=== PATIENT | female | born 1985 | race Caucasian/White ===

== ENCOUNTER 2020-07-30 18:52 | Emergency (ER) | payer MEDICAID, OTHER ==
[~2020-07-30] VITALS: Ht 154.9 cm; Wt 56.8 kg
[2020-07-30] MEDS ORDERED: PENICILLIN G BENZATHINE 2,400,000 UNIT/4 ML SYRINGE IM STA (19:33)
[2020-07-30] MEDS ORDERED: CefTRIAXone 1000mg IM Kit (w/lidocaine diluent) IM STA (19:33)
[2020-07-30] MEDS ORDERED: HYDROcodone/acetaminophen 5mg/325mg tablet PO ONE (19:35)
[2020-07-30] MEDS ORDERED: azithromycin 250mg tablet PO ONE (19:35)
[2020-07-30] MEDS ORDERED: metroNIDAZOLE 500mg tablet PO ONE (19:35)
[2020-07-30 19:44] VITALS: BP 159/89
[2020-07-30] MEDS ORDERED: DOXY100C77 PO (19:54)
== END 2020-07-30 20:28 | disposition home or self-care (01) ==
LOC: ER 18:53
DX: K04.7 Periapical abscess without sinus (principal); A64 Unspecified sexually transmitted disease; F12.90 Cannabis use, unspecified, uncomplicated; F17.200 Nicotine dependence, unspecified, uncomplicated; Z59.0 Homelessness; Z79.2 Long term (current) use of antibiotics
CPT/HCPCS: 36415; 86592; 87491; 87591; 96372; 99284; J0561; J0696; J3490

== ENCOUNTER 2020-08-31 22:48 | Emergency (ER) | payer MEDICAID ==
[~2020-08-31] VITALS: Ht 154.9 cm; Wt 61.5 kg
[2020-08-31 23:02] VITALS: BP 134/79
[2020-09-01] MEDS ORDERED: PENICILLIN G BENZATHINE 2,400,000 UNIT/4 ML SYRINGE IM ONE (00:35)
[2020-09-01] MEDS ORDERED: azithromycin 250mg tablet PO ONE (00:35)
[2020-09-01] MEDS ORDERED: CefTRIAXone 1000mg IM Kit (w/lidocaine diluent) IM ONE (00:35)
== END 2020-09-01 01:13 | disposition home or self-care (01) ==
LOC: ER 22:49
DX: Z20.2 Contact with and (suspected) exposure to infections with a predominantly sexual mode of transmission (principal); F12.90 Cannabis use, unspecified, uncomplicated; Z56.0 Unemployment, unspecified
CPT/HCPCS: 36415; 87491; 87591; 96372; 99283; J0696

== ENCOUNTER 2021-01-08 22:18 | Emergency (ER) | payer MEDICAID ==
[~2021-01-08] VITALS: Ht 154.9 cm; Wt 65.0 kg
[2021-01-08 23:03] VITALS: BP 108/65
== END 2021-01-09 01:50 | disposition left against medical advice (07) ==
LOC: ER 22:19
DX: J02.9 Acute pharyngitis, unspecified (principal); Z53.21 Procedure and treatment not carried out due to patient leaving prior to being seen by health care provider

== ENCOUNTER 2021-03-01 15:29 | Emergency (ER) | payer MEDICAID ==
[~2021-03-01] VITALS: Ht 154.9 cm; Wt 61.4 kg
[2021-03-01 15:55] VITALS: BP 121/66
--- NOTE | 2021-03-01 16:27 | NUR ---
PT IS REFUSING BLOOD DRAW FOR LABS. PT INSISTING THAT SHE WANTS NOTHING DONE WITHOUT SEEING A PROVIDER. PT WAS NOTIFIED THAT SHE HAD BEEN SEEN BY A PROVIDER AND XRAYS AND LAB WORK WAS ORDERED PART OF THE EVALUATION PROCESS. PT BECAME UPSENT AND AGGITATED AND CONTINUED TO REFUSE LAB DRAW. PROVIDER, BATOOL PAIGE NOTIFIED
[2021-03-01] MEDS ORDERED: iohexol 350MG/ML 100ml bottle IV ONE (17:25)
== END 2021-03-01 17:34 | disposition left against medical advice (07) ==
LOC: ER 15:30
DX: S05.11XA Contusion of eyeball and orbital tissues, right eye, initial encounter (principal); F12.10 Cannabis abuse, uncomplicated; R13.10 Dysphagia, unspecified; Z59.0 Homelessness; Y04.0XXA Assault by unarmed brawl or fight, initial encounter; Y93.89 Activity, other specified; Y92.89 Other specified places as the place of occurrence of the external cause; Y99.8 Other external cause status
CPT/HCPCS: 71045; 99283; Q9967; 99285

== ENCOUNTER 2022-01-19 00:24 | Emergency (ER) | payer MEDICAID ==
[~2022-01-19] VITALS: Ht 154.9 cm; Wt 62.7 kg
[2022-01-19 00:30] VITALS: BP 132/82
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
== END 2022-01-19 04:33 | disposition left against medical advice (07) ==
LOC: ER 00:25
DX: S60.451A Superficial foreign body of left index finger, initial encounter (principal); Z53.21 Procedure and treatment not carried out due to patient leaving prior to being seen by health care provider; X58.XXXA Exposure to other specified factors, initial encounter; Y93.89 Activity, other specified; Y92.89 Other specified places as the place of occurrence of the external cause; Y99.8 Other external cause status
CPT/HCPCS: 73130

== ENCOUNTER 2023-10-13 21:03 | Emergency (ER) | payer MEDICAID ==
[~2023-10-13] VITALS: Ht 154.9 cm; Wt 63.0 kg
[2023-10-13 21:09] VITALS: BP 154/97; PULSE 87; RESP 16; O2SAT 100
[2023-10-13] MEDS ORDERED: SULF1TAB45 PO (22:50)
[2023-10-13] MEDS ORDERED: CLIN-97 PO (22:50)
[2023-10-13 23:04] VITALS: TEMP 98.4
== END 2023-10-13 23:05 | disposition home or self-care (01) ==
LOC: ER 21:03
DX: S01.81XA Laceration without foreign body of other part of head, initial encounter (principal); F12.90 Cannabis use, unspecified, uncomplicated; Y08.89XA Assault by other specified means, initial encounter; Y93.89 Activity, other specified; Y92.89 Other specified places as the place of occurrence of the external cause; Y99.8 Other external cause status
CPT/HCPCS: 99283

== ENCOUNTER 2024-07-08 20:24 | Emergency (ER) | payer MEDICAID ==
[~2024-07-08] VITALS: Ht 152.4 cm; Wt 49.7 kg
[~2024-07-08 20:24] MED LIST: CLIN-97 PO
[2024-07-08 21:34] VITALS: TEMP 98.6
[2024-07-08 23:10] LABS: BILIRUBIN,URINE NEGATIVE (Neg); CLARITY,URINE CLEAR (Clear); COLOR,URINE YELLOW (Yellow); GLUCOSE, URINE NEGATIVE (Neg); KETONES,URINE NEGATIVE (Neg); LEUKOCYTE ESTERASE ,URINE MODERATE (Neg); NITRITES, URINE POSITIVE (Neg); OCCULT BLOOD,URINE NEGATIVE (Neg); PH,URINE 7.5 (4.8-8.0); PROTEIN,URINE NEGATIVE (Neg); UROBILINOGEN,URINE 0.2 E.U/dL (0.2-1.0)
[2024-07-08 23:12] LABS: ALBUMIN 3.3 G/DL (3.4-5.0); ANION GAP 5 (8-16); BLOOD UREA NITROGEN 12 MG/DL (7-18); BUN/CREATININE RATIO 14.1 (10.0-20.0); CALCIUM 8.5 MG/DL (8.5-10.1); CHLORIDE 103 MMOL/L (99-107); CREATININE 0.85 MG/DL (0.40-0.90); ETHANOL < 10 MG/DL (<10); GLUCOSE 97 MG/DL (70-104); HCG SERUM QL NEGATIVE; POTASSIUM 3.6 MMOL/L (3.5-5.1); SODIUM 139 MMOL/L (135-145); TOTAL CARBON DIOXIDE 30.7 MMOL/L (24-32); eCRCL 63 ML/MIN; eGFR 74 ML/MIN
[2024-07-08 23:25] LABS: UA COLLECTION TYPE CLN CATCH MIDSTREAM
[2024-07-08] MEDS: acetaminophen 1,000mg/100ml IV 100 ML IV ONE (23:25)
[2024-07-08 23:26] LABS: BACTERIA,URINE 4+ /HPF (Neg); RBC,URINE NONE SEEN /HPF (0-2); SQUAMOUS EPITHELIAL CELL,UR FEW /LPF (FEW)
[2024-07-08 23:31] LABS: BASOPHILS % (AUTO) 0.2 % (0-1); EOSINOPHILS # (AUTO) 0.1 X10'3 (0-0.9); EOSINOPHILS % (AUTO) 0.4 % (0-6); HEMATOCRIT 36.8 % (35.0-45.0); HEMOGLOBIN 12.7 g/dl (12.0-16.0); LYMPHOCYTES # (AUTO) 1.8 X10'3 (1.1-4.8); LYMPHOCYTES % (AUTO) 12.7 % (21-51); MEAN CORPUSCULAR HEMOGLOBIN 30.2 PG (27.0-31.0); MEAN CORPUSCULAR HGB CONC 34.5 g/dL (33.0-36.5); MEAN CORPUSCULAR VOLUME 87.3 FL (78-98); MEAN PLATELET VOLUME 6.6 FL (7.4-10.4); MONOCYTES # (AUTO) 0.4 X10'3 (0-0.9); MONOCYTES % (AUTO) 2.9 % (2-12); NEUTROPHILS # (AUTO) 11.6 X10'3 (1.8-7.7); NEUTROPHILS % (AUTO) 83.8 % (42-75); PLATELET COUNT 307 X10'3 (140-440); RED BLOOD COUNT 4.21 X10'6 (4.20-5.60); WHITE BLOOD COUNT 13.8 X10'3 (4.5-11.0)
[2024-07-08 23:51] LABS: URINE AMPHETAMINE SCREEN POSITIVE (Neg); URINE BARBITUATE SCREEN NEGATIVE (Neg); URINE BENZODIAZEPINES SCREEN NEGATIVE (Neg); URINE CANNABINOID SCREEN POSITIVE (Neg); URINE COCAINE SCREEN NEGATIVE (Neg); URINE METHADONE SCREEN NEGATIVE (Neg); URINE OPIATE SCREEN NEGATIVE (Neg); URINE PHENCYCLIDINE SCREEN NEGATIVE (Neg)
[2024-07-09] MEDS: CefTRIAXone/D5W-Rocephin 1gm 50 ML IV ONE (01:03)
[2024-07-09] MEDS ORDERED: CEPH-585 PO (01:12)
[2024-07-09] MEDS: ketorolac trometh 15mg/ml vial 15 MG/ML ML IV ONE (01:49)
[2024-07-09 02:03] VITALS: BP 121/64; PULSE 64; RESP 16; O2SAT 97
== END 2024-07-09 02:30 | disposition home or self-care (01) ==
LOC: ER 20:25
DX: S06.0XAA Concussion with loss of consciousness status unknown, initial encounter (principal); F15.10 Other stimulant abuse, uncomplicated; N39.0 Urinary tract infection, site not specified; Z59.00 Homelessness unspecified; W18.39XA Other fall on same level, initial encounter; Y93.K1 Activity, walking an animal; Y92.89 Other specified places as the place of occurrence of the external cause; Y99.8 Other external cause status
CPT/HCPCS: 36415; 70450; 72125; 80048; 80305; 80320; 81001; 82140; 84703; 85025; 87077; 87088; 87186; 87502; 87503; 93005; 96365; 96367; 96375; 99285; J0131; J0696; J1885; C1758